=== PATIENT | female | born 1965 | race Caucasian/White ===

== ENCOUNTER 2019-06-03 07:55 | Emergency (ER) | payer BC ==
[~2019-06-03] VITALS: Ht 167.6 cm; Wt 86.2 kg
[2019-06-03] MEDS ORDERED: CARVEDILOL12.5 MG PO (08:10)
[2019-06-03] MEDS ORDERED: LISINOPRIL20 MG PO (08:10)
[2019-06-03] MEDS ORDERED: LIPITOR20 MG PO (08:10)
== END 2019-06-03 09:30 | disposition home or self-care (01) ==
LOC: ER 07:55
DX: S61.220A Laceration with foreign body of right index finger without damage to nail, initial encounter (principal); W27.8XXA Contact with other nonpowered hand tool, initial encounter; Y93.89 Activity, other specified; Y92.59 Other trade areas as the place of occurrence of the external cause; Y99.8 Other external cause status